=== PATIENT | female | born 1955 | race Caucasian/White ===

== ENCOUNTER 2016-06-24 10:52 | Outpatient (CLI) | payer OTHER ==
[~2016-06-24 10:52] MED LIST: METOPROLOL50 MG; PREVACID15 MG
== END 2016-06-24 20:24 | disposition home or self-care (01) ==
LOC: MLB 10:52
PROVIDERS: ATTEND Internal Medicine Geriatric Medicine
DX: E11.9 Type 2 diabetes mellitus without complications (principal); E55.9 Vitamin D deficiency, unspecified; E04.1 Nontoxic single thyroid nodule; R39.198 Other difficulties with micturition

== ENCOUNTER 2017-02-03 02:05 | Emergency (ER) | payer OTHER ==
[~2017-02-03] VITALS: Ht 157.5 cm; Wt 97.6 kg
[~2017-02-03 02:05] MED LIST changes: +LANS15EC28; +METO50TA10; -METOPROLOL50 MG; -PREVACID15 MG
[2017-02-03 02:13] VITALS: BP 157/71
--- NOTE | 2017-02-03 02:18 | NUR ---
PT TAKEN TO BED 11
--- NOTE | 2017-02-03 02:26 | NUR ---
Dr. Trimble evaluating patient at bedside.
--- NOTE | 2017-02-03 02:29 | NUR ---
61/F c/o right shoulder pain since Wednesday worsening tonight. Pt c/o 12/27, radiating down the right arm. Pt denies any injury or trauma. Pt noted holding her right arm. AOX4, ambulatory with steady gait.
[2017-02-03] MEDS ORDERED: KETOROLAC 30 MG/ML VIAL IM ONE (02:35)
--- NOTE | 2017-02-03 02:51 | NUR ---
X-Ray at bedside.
--- NOTE | 2017-02-03 02:51 | NUR ---
Wilfred parker in [facility] - 02/03/17 at 0339 by ANSON X-Ray at bedside.
[2017-02-03 04:02] VITALS: BP 157/71
--- NOTE | 2017-02-03 04:04 | NUR ---
Patient discharged with v/s stable. Written and verbal after care instructions given and explained. Patient alert, oriented and verbalized understanding of instructions. Ambulatory with steady gait. All questions addressed prior to discharge. Patient advised to follow up with PMD. Rx of ultram 50mg given. Patient educated on indication of medication including possible reaction and side effects. Opportunity to ask questions provided and answered.
== END 2017-02-03 04:04 | disposition home or self-care (01) ==
LOC: MED 02:05
DX: M75.81 Other shoulder lesions, right shoulder (principal); I10 Essential (primary) hypertension; Z90.710 Acquired absence of both cervix and uterus; Z88.8 Allergy status to other drugs, medicaments and biological substances; Z79.899 Other long term (current) drug therapy
CPT/HCPCS: 73030; 96372; 99284; J1885; Q0092

== ENCOUNTER 2017-10-04 23:13 | Outpatient (CLI) | payer OTHER ==
[~2017-10-04 23:13] MED LIST changes: -METO50TA10; +METO50TA34
[2017-10-04 23:38] LABS: BASOPHILS # (AUTO) 0.1 K/uL (0.00-0.22); BASOPHILS % (AUTO) 1.1 % (0.0-2.0); EOSINOPHILS # (AUTO) 0.2 K/uL (0-0.4); EOSINOPHILS % (AUTO) 1.8 % (0.0-4.0); HEMOGLOBIN 14.9 g/dL (12.0-16.0); LYMPHOCYTES # (AUTO) 3.6 K/uL (2.5-16.5); LYMPHOCYTES % (AUTO) 31.2 % (20.5-51.1); MEAN CORPUSCULAR HEMOGLOBIN 28 pg (27-31); MEAN CORPUSCULAR HGB CONC 34 g/dL (33-37); MEAN CORPUSCULAR VOLUME 82.4 fL (80-94); MONOCYTES # (AUTO) 0.5 K/uL (0.8-1.0); MONOCYTES % (AUTO) 4.3 % (1.7-9.3); NEUTROPHILS # (AUTO) 7.2 K/uL (1.8-7.7); NEUTROPHILS % (AUTO) 61.6 % (42.2-75.2); PLATELET COUNT (AUTO) 341 K/uL (140-450); RED BLOOD CELL COUNT(AUTO) 5.35 MIL/uL (4.20-5.40); RED CELL DISTRIBUTION WIDTH 14.5 % (11.6-13.7); WHITE BLOOD COUNT (AUTO) 11.6 K/uL (4.8-10.8)
[2017-10-05 00:01] LABS: ALBUMIN 3.9 g/dL (3.4-5.0); ANION GAP 16.4 (8-16); CARBON DIOXIDE 25.8 mmol/L (21-32); CHOL/HDL RATIO 3.4 (1-4.5); CREATININE 0.8 mg/dL (0.6-1.3); FREE T4 (FREE THYROXINE) 1.13 ng/dL (0.76-1.46); POTASSIUM 4.2 mmol/L (3.5-5.1); THYROID STIMULATING HORMONE 1.48 uIU/mL (0.34-3.74); TOTAL BILIRUBIN 0.3 mg/dL (0.0-1.0)
== END 2017-10-04 23:59 ==
LOC: MLB 23:13
PROVIDERS: ATTEND Internal Medicine Geriatric Medicine
DX: Z00.01 Encounter for general adult medical examination with abnormal findings (principal); E11.65 Type 2 diabetes mellitus with hyperglycemia; I10 Essential (primary) hypertension
CPT/HCPCS: 36415; 80053; 82306; 83036; 84439; 84443; 85025

== ENCOUNTER 2018-12-13 08:24 | Inpatient (IN) | payer OTHER ==
[~2018-12-13] VITALS: Ht 157.5 cm; Wt 92.5 kg
[2018-12-13 08:43] VITALS: BP 138/71
--- NOTE | 2018-12-13 09:05 | NUR ---
PT BIB SELF C/O N/V, BODY ACHES, CHILLS, "UNABLE TO CONTROL BLADDER," +URINARY FREQUENCY, SUBJECTIVE FEVER, HUNTER "IN THE BACK OF THE NECK" X 3 DAYS. 2 EPISODES OF BILE EMESIS TODAY. NO DIARRHEA, LAST BM 12/12/18, SOFT FIRM. DENEIS ABD PAIN, BOWEL SOUNDS ACTIVE X4 QUADRANTS, SOFT, AND NON-TENDER. DENIES CP/SOB. VSS. ER MD TO SEE PT. HX: DIABETES, HTN RX: METFORMIN, LEVOTHYROXINE, LOSARTAN, LORATADINE BS: [phone]
[2018-12-13] MEDS ORDERED: LOSA25TA43 PO (09:08)
[2018-12-13] MEDS ORDERED: LORA10TA19 PO (09:08)
[2018-12-13] MEDS ORDERED: LEVO0.087 PO (09:08)
[2018-12-13] MEDS ORDERED: LOSA50TA66 PO (09:08)
[2018-12-13] MEDS ORDERED: METF-431 PO (09:08)
[2018-12-13] MEDS ORDERED: ONDANSETRON 4 MG/2 ML VIAL IVP ONE ×2 (09:20→12:00)
[2018-12-13] MEDS ORDERED: KETOROLAC 30 MG/ML VIAL IVP ONE (09:20)
[2018-12-13] MEDS ORDERED: NACL 0.9% 1,000 ML IV SCH (09:20)
--- NOTE | 2018-12-13 09:53 | NUR ---
PT STATES SHE FEELS HOT, PT FEBRILE WITH TEMP OF 101.7 AT THIS TIME, COOLING MEASURES TAKEN, ER NOTIFIED.
[2018-12-13 10:03] LABS: BASOPHILS % (AUTO) 0.4 % (0.0-2.0); HEMATOCRIT 43.3 % (36-48); HEMOGLOBIN 14.6 g/dL (12.0-16.0); LYMPHOCYTES # (AUTO) 0.8 K/uL (2.5-16.5); LYMPHOCYTES % (AUTO) 8.3 % (20.5-51.1); MEAN CORPUSCULAR HEMOGLOBIN 28 pg (27-31); MEAN CORPUSCULAR HGB CONC 34 g/dL (33-37); MEAN CORPUSCULAR VOLUME 83.4 fL (80-94); MONOCYTES # (AUTO) 0.7 K/uL (0.8-1.0); MONOCYTES % (AUTO) 7.5 % (1.7-9.3); NEUTROPHILS # (AUTO) 8.1 K/uL (1.8-7.7); NEUTROPHILS % (AUTO) 83.8 % (42.2-75.2); PLATELET COUNT (AUTO) 218 K/uL (140-450); RED CELL DISTRIBUTION WIDTH 14.1 % (11.6-13.7); WHITE BLOOD COUNT (AUTO) 9.7 K/uL (4.8-10.8)
[2018-12-13] MEDS ORDERED: ACETAMINOPHEN EXTRA STRENGTH 500 MG TAB PO ONE (10:10)
--- NOTE | 2018-12-13 10:17 | NUR ---
PT RESTING IN BED WITH EYES CLOSED, ARROUSABLE TO NAME. PT DENIES PAIN AT THIS TIME AND STATES HER NAUSEA IS IS BETTER. PT AAOX4, COOPERATIVE.
[2018-12-13 10:25] LABS: PROTHROMBIN TIME 9.8 secs (10.8-13.4)
[2018-12-13 10:28] LABS: ALBUMIN 3.1 g/dL (3.4-5.0); ANION GAP 14.3 (8-16); CARBON DIOXIDE 26.3 mmol/L (21-32); CREATININE 0.8 mg/dL (0.6-1.3); POTASSIUM 3.6 mmol/L (3.5-5.1); TOTAL BILIRUBIN 0.5 mg/dL (0.0-1.0)
[2018-12-13 10:30] LABS: APPEARANCE,URINE SL CLOUDY (CLEAR); BILIRUBIN,URINE 2+ (NEGATIVE); BLOOD, URINE 3+ (NEGATIVE); COLOR,URINE YELLOW (YELLOW); LEUKOCYTE ESTERASE ,URINE NEGATIVE (NEGATIVE); NITRITE, URINE NEGATIVE (NEGATIVE); PH,URINE 5.5 (5.0-9.0); UGLUCOSE 2+ (NEGATIVE)
[2018-12-13 11:08] LABS: RBC,URINE 0-5 /HPF (0-5)
[2018-12-13] MEDS ORDERED: MORPHINE SULFATE 4 MG/ML SYR IVP ONE (12:00)
[2018-12-13] MEDS ORDERED: NACL 0.9% 1,000 ML IV ONE (12:00)
[2018-12-13] MEDS ORDERED: cefTRIAXone 1,000 MG VIAL ONE (12:10)
[2018-12-13] MEDS ORDERED: DEXT 5% /NACL 0.9% 1,000 ML IV SCH (12:38)
[2018-12-13] MEDS ORDERED: ZOLPIDEM 5 MG TAB PO PRN (12:40)
[2018-12-13] MEDS ORDERED: ONDANSETRON 4 MG/2 ML VIAL IM/IVP PRN (12:40)
[2018-12-13] MEDS ORDERED: LORazepam 2 MG/ML VIAL IM/IVP PRN (12:40)
[2018-12-13] MEDS ORDERED: DOCUSATE SODIUM 100 MG GELCAP PO PRN (12:40)
[2018-12-13] MEDS ORDERED: metroNIDAZOLE 500 MG/NS PREMIX 100 ML IV SCH ×2 (13:00→14:00)
--- NOTE | 2018-12-13 13:23 | NUR ---
PT ADMITTED TO THE FLOOR AT THIS TIME
--- NOTE | 2018-12-13 13:30 | NUR ---
Patient will be admitted to care of [facility]. Admited to TELE VIA GURRUBÉN W/ VSS. Will go to room 115. Belongings list completed. Report to MARVIN MATTSON.
--- NOTE | 2018-12-13 13:30 | NUR ---
PT ARRIVED ON THE UNIT PT APPEARS STABLE AND IN NO APPARENT DISTRESS. RECEIVED HAND OFF REPORT FROM ER NURSE. MRSA TAKEN, PT ORIENTED TO THE UNIT. VITALS TAKEN TEMP 97.0 HEART RATE 71 O2 96% ROOM AIR 136/62 RESIPIRATIONS 16 WILL CONTINUE TO MONITOR
[2018-12-13] MEDS ORDERED: DEXTROSE 50% 50 ML SYR IVP PRN (14:00)
[2018-12-13 14:12] LABS: MAGNESIUM 1.7 mg/dL (1.8-2.4); PHOSPHORUS 2.8 mg/dL (2.5-4.9); THYROID STIMULATING HORMONE 1.17 uIU/mL (0.34-3.74)
[2018-12-13] MEDS ORDERED: RANI150C PO (14:30)
[2018-12-13] MEDS: NACL 0.9% 1,000 ML IV SCH ×2 (14:48→23:20)
[2018-12-13] MEDS ORDERED: MAG SULF 2000 MG/WATER PREMIX 50 ML IV SCH ×2 (15:30→16:30)
--- NOTE | 2018-12-13 15:36 | NUR ---
FREQUENT ROUNDING ON PT PT APPEARS STABLE AND IN NO APPARENT DISTRESS. ALL SAFETY MEASURES ARE IN PLACE WILL CONTINUE TO MONITOR.
[2018-12-13] MEDS ORDERED: METOCLOPRAMIDE 10 MG/2 ML INJ VIAL IVP PRN (16:00)
--- NOTE | 2018-12-13 16:40 | NUR ---
PT REFUSES ABG AT THIS TIME ATTEMPTS MADE. LEFT SPUTUM CUP AT BEDSIDE
[2018-12-13 16:45] VITALS: BP 117/77
[2018-12-13] MEDS: BLOOD GLUCOSE MONITORING 1 DEV DEV FS SCH ×2 (16:57→20:14)
--- NOTE | 2018-12-13 17:00 | NUR ---
PT TAKEN OFF THE UNIT FOR CT CHEST WITH CONTRAST
--- NOTE | 2018-12-13 17:30 | NUR ---
PT RETURNED BACK TO THE UNIT
[2018-12-13] MEDS: HYDROcodone/APAP 5/325 MG 1 TAB TAB PO PRN (17:39)
[2018-12-13] MEDS: INSULIN LISPRO SLIDING SCALE 100 UNITS/ML VIAL SUBQ PRN (17:40)
[2018-12-13] MEDS: ALBUTEROL SULFATE/IPRATROPIU 3 ML SOL IH SCH (19:28)
--- NOTE | 2018-12-13 19:28 | NUR ---
ENDORSED PT TO PM RN PT AWAKE IN BED PT APPEARS STABLE AND IN NO APPARENT DISTRESS. ALL SAFETY MEASURES ARE IN PLACE. IVF INFUSING.
--- NOTE | 2018-12-13 19:30 | NUR ---
RECEIVED BEDSIDE REPORT FROM DAY RN. PT IS AAOX4 ON RA. RESPIRATIONS ARE EQUAL AND UNLABORED. LUNG SOUNDS DIMINISH ON RLL. SKIN IS INTACT. PT IS AMBULATORY. 2 IVS R [id number] SL AND R FA 18G IVF AND MG INFUSING PER ORDERS. PT DENIES ANY NAUSEA AT THIS TIME. PLAN OF CARE DISCUSSED WITH PT. SAFETY MEASURES ARE IN PLACE. CALL LIGHT IS WITHIN REACH. WILL ROUND FREQUENTLY.
[2018-12-13 20:00] VITALS: BP 128/62
[2018-12-13] MEDS: metroNIDAZOLE 500 MG/NS PREMIX 100 ML IV SCH (20:29)
[2018-12-13] MEDS: FAMOTIDINE 20 MG TAB PO SCH (20:29)
--- NOTE | 2018-12-13 20:29 | NUR ---
VITAL SIGNS ARE WITHIN NORMAL LIMITS. NO TEMP AND DENIES PAIN. BLOOD SUGAR IS 260 PT JUST FINISHED EATING TRAY AND REFUSED INSULIN EDUCATED PT SHE NORMALLY TAKES METFORMIN AT HOME AND NOT INSULIN. METFORMIN TO BE HELD FOR 24 HRS D/T CT OF CHEST WITH CONTRAST. PT VERBALIZED UNDERSTANDING. WILL RECHECK IN AM. REMAINING DAYANA MEDICATIONS WERE GIVEN. PT TOLERATED WELL. SON AND DAUGHTER IN LAW ARE AT BEDSIDE. CALL LIGHT WITHIN REACH. WILL CONTINUE TO MONITOR.
[2018-12-13] MEDS ORDERED: NON-FORMULARY ITEM (Ranitidine HCl (Ranitidine Hcl) 1 CAP) PO SCH (21:00)
[2018-12-13] MEDS ORDERED: BENZONATATE 100 MG CAPLF PO PRN (21:45)
--- NOTE | 2018-12-13 22:00 | NUR ---
REMINDED PT FOR NEED OF SPUTUM CULTURE. PATIENT VERBALIZED UNDERSTANDING. SPECIMEN CUP AT BEDSIDE AND FAMILY REMAIN AT BEDSIDE. WILL CONTINUE TO MONITOR.
[2018-12-13] MEDS: ALBUTEROL SULFATE/IPRATROPIU 3 ML SOL IH PRN (23:25)
--- NOTE | 2018-12-13 23:35 | NUR ---
PAGED RT FOR BREATHING TREATMENT. PT WHEEZING RONIT. VS: 98%, RA RR 18, 131/56, HR 87, 98.5 DENIES PAIN. SAFETY MEASURES ARE IN PLACE. SON AT BEDSIDE. WILL CONTINUE TO MONITOR.
[2018-12-13] MEDS ORDERED: guaiFENesin 20 MG/ML UDC PO PRN (23:40)
--- NOTE | 2018-12-13 23:40 | NUR ---
RT AT BEDSIDE. WILL CONTINUE TO MONITOR
--- NOTE | 2018-12-13 23:49 | NUR ---
ROBITUSSIN GIVEN FOR COUGH. VITAL SIGNS WNL. ALL NEEDS MET AT THIS TIME. WILL CONTINUE TO MONITOR.
[2018-12-14] VITALS: BP 131/56
--- NOTE | 2018-12-14 03:00 | NUR ---
PATIENT IS SLEEPING COMFORTABLY IN BED. CHEST RISE AND FALL. CALL LIGHT IS WITHIN REACH. WILL CONTINUE TO MONITOR
[2018-12-14 04:00] VITALS: BP 121/51
--- NOTE | 2018-12-14 04:30 | NUR ---
VITAL SIGNS ARE WITHIN NORMAL LIMITS. WILL CONTINUE TO MONITOR
[2018-12-14] MEDS: metroNIDAZOLE 500 MG/NS PREMIX 100 ML IV SCH ×3 (05:44→20:55)
[2018-12-14] MEDS: LEVOTHYROXINE 0.088 MG TAB PO SCH (05:45)
[2018-12-14] MEDS: ACETAMINOPHEN 325 MG TAB PO PRN ×2 (05:49→15:07)
--- NOTE | 2018-12-14 05:49 | NUR ---
TYLENOL GIVEN FOR TEMP 100.3 AND COOLING MEASURES ARE IN PLACE. WILL RECHECK TEMP IN 1 HOUR
[2018-12-14] MEDS: ALBUTEROL SULFATE/IPRATROPIU 3 ML SOL IH SCH ×3 (06:06→22:34)
[2018-12-14] MEDS: BLOOD GLUCOSE MONITORING 1 DEV DEV FS SCH ×4 (06:35→21:06)
[2018-12-14] MEDS: INSULIN LISPRO SLIDING SCALE 100 UNITS/ML VIAL SUBQ PRN ×3 (06:44→21:09)
--- NOTE | 2018-12-14 06:55 | NUR ---
ADMINISTERED HUMALOG 2 U FOR 196 AND TEMP NOW 98.8. ALL SAFETY MEASURES ARE IN PLACE. WILL CONTINUE TO MONITOR.
--- NOTE | 2018-12-14 07:27 | NUR ---
GAVE BEDSIDE REPORT TO DAY RN. PT ENDORSED IN STABLE CONDITION.
--- NOTE | 2018-12-14 07:28 | NUR ---
RECEIVED REPORT FROM JEWELRY MECHANIC NURSE. PT LYING IN BED, AAOX4, NO C/O PAIN AT THIS TIME. PT ON FUR CUTTING MACHINE OPERATOR. NOTED IV ON RT FA 18 GA RUNNING IVF PER ORDER AND RT HAND 20 GA ON SALINE LOCK. RESPIRATIONS EVEN AND UNLABORED ON RA. ACTIVE BOWEL SOUNDS THROUGHOUT, ABD SOFT. SKIN IS INTACT, WARM TO TOUCH. REVIEWED POC WITH PT, PT VERBALIZED UNDERSTANDING.
[2018-12-14 07:52] LABS: BASOPHILS % (AUTO) 0.3 % (0.0-2.0); EOSINOPHILS % (AUTO) 0.1 % (0.0-4.0); HEMATOCRIT 36.4 % (36-48); HEMOGLOBIN 12.4 g/dL (12.0-16.0); LYMPHOCYTES % (AUTO) 15.5 % (20.5-51.1); MEAN CORPUSCULAR HEMOGLOBIN 28 pg (27-31); MEAN CORPUSCULAR HGB CONC 34 g/dL (33-37); MEAN CORPUSCULAR VOLUME 82.5 fL (80-94); MONOCYTES # (AUTO) 0.6 K/uL (0.8-1.0); MONOCYTES % (AUTO) 8.9 % (1.7-9.3); NEUTROPHILS # (AUTO) 4.9 K/uL (1.8-7.7); NEUTROPHILS % (AUTO) 75.2 % (42.2-75.2); PLATELET COUNT (AUTO) 181 K/uL (140-450); RED BLOOD CELL COUNT(AUTO) 4.42 MIL/uL (4.20-5.40); RED CELL DISTRIBUTION WIDTH 13.9 % (11.6-13.7); WHITE BLOOD COUNT (AUTO) 6.6 K/uL (4.8-10.8)
[2018-12-14 08:00] VITALS: BP 118/63
[2018-12-14 08:12] LABS: T4 (THYROXINE) 8.7 ug/dL (4.5-12.0)
[2018-12-14 08:20] LABS: ANION GAP 16.5 (8-16); CARBON DIOXIDE 20.9 mmol/L (21-32); CREATININE 0.7 mg/dL (0.6-1.3); POTASSIUM 3.4 mmol/L (3.5-5.1)
--- NOTE | 2018-12-14 08:23 | NUR ---
PATIENT HAS BEEN SCREENED AND CATEGORIZED HIGH NUTRITION RISK. PATIENT WILL BE SEEN WITHIN 1-2 DAYS OF ADMISSION. 12/14/18-12/15/[address]
[2018-12-14 08:27] LABS: MAGNESIUM 1.8 mg/dL (1.8-2.4); PHOSPHORUS 2.2 mg/dL (2.5-4.9)
[2018-12-14] MEDS: FAMOTIDINE 20 MG TAB PO SCH ×2 (08:55→20:55)
[2018-12-14] MEDS: LACTOBACILLUS RHAMNOSUS GG 1 EACH CAP PO SCH (08:55)
[2018-12-14] MEDS: LOSARTAN 50 MG TAB PO SCH (08:55)
--- NOTE | 2018-12-14 08:59 | NUR ---
PT PROVIDED SPUTUM CULTURE, WILL SEND SPECIMEN TO LAB.
[2018-12-14] MEDS: MORPHINE SULFATE 2 MG/ML SYR IVP PRN (10:35)
[2018-12-14 10:37] LABS: CHOL/HDL RATIO 4.7 (1-4.5)
[2018-12-14] MEDS: NACL 0.9% 1,000 ML IV SCH ×2 (10:40→16:28)
[2018-12-14] MEDS: ALBUTEROL SULFATE/IPRATROPIU 3 ML SOL IH PRN (11:05)
--- NOTE | 2018-12-14 11:30 | NUR ---
WILL HOLD BLOOD SUGAR COVERAGE, PT WILL BE PLACED ON NPO D/T ULTRASOUND PROCEDURE LATER. PT IS AWARE AND WILL REPORT ANY S/S OF HYPERGLYCEMIA.
[2018-12-14 12:00] VITALS: BP 141/70
[2018-12-14] MEDS ORDERED: methylPREDNISolone SS 40 MG/ML VIAL IVP SCH (12:04)
--- NOTE | 2018-12-14 12:29 | NUR ---
pt has refused abg. leanne wright and dr. fagan notified
[2018-12-14] MEDS ORDERED: POTASSIUM PHOSPHATE 15 MM in NACL 0.9% 250 ML IV SCH (13:00)
--- NOTE | 2018-12-14 14:07 | NUR ---
PT GIVEN TYLENOL AND PROVIDED COOLING MEASURES FOR FEVER, ORAL TEMP 101.9. WILL REASSESS WITHIN ONE HOUR. Addendum: 12/14/18 at 2022 by Tiffanie Tinsley RN CLARIFICATION: INCORRECT TIME TYLENOL WAS GIVEN AT 1507.
--- NOTE | 2018-12-14 15:07 | NUR ---
12/14/18 RD INITIAL ASSESSMENT COMPLETED PLEASE REFER TO NUTRITION ASSESSMENT UNDER CARE ACTIVITY FOR ESTIMATED NUTRITIONAL NEEDS. 1. CONTINUE NPO MEDICALLY NECESSARY 2. WHEN MEDICALLY APPROPRIATE, CONSIDER ADVANCING TO A [facility] [address]GM VEGETARIAN DIET 3. RD OFFERED NUTRITION EDUCATION THERAPY FOR DIABETES BUT PATIENT DECLINED 4. RD TO FOLLOW-UP 3-5 DAYS, MODERATE RISK [address]NOR [address]OL[address]
[2018-12-14 16:00] VITALS: BP 105/54
--- NOTE | 2018-12-14 16:07 | NUR ---
ORAL TEMP CHECKED AT 100.4. WILL CONTINUE TO PROVIDE COOLING MEASURES AT THIS TIME.
--- NOTE | 2018-12-14 17:00 | NUR ---
PT'S TEMPERATURE CHECKED AT 98.3, PT IS AFEBRILE. WILL CONTINUE TO MONITOR.
--- NOTE | 2018-12-14 19:08 | NUR ---
ENDORESED PT TO MICA LAMINATING MACHINE FEEDER NURSE. PT HAS NO SIGNS OF DISTRESS AT THIS TIME.
--- NOTE | 2018-12-14 19:15 | NUR ---
RECEIVED BEDSIDE REPORT FROM DAY SHIFT NURSE. PATIENT IS AWAKE, ALERT, AND COOPERATIVE. RESPIRATION EVEN UNLABORED ON ROOM AIR. NO DISTRESS NOTED. SKIN IS WARM AND DRY. IV PATENT AND INTACT. DENIES PAIN. PLAN OF CARE WAS DISCUSSED. ALL SAFETY MEASURES IN PLACE. BED IS AT LOW POSITION. CALL LIGHT WITHIN REACH AND VERBALIZES ITS USE. WILL CONTINUE TO MONITOR.
--- NOTE | 2018-12-14 19:38 | NUR ---
SHE ON THE PHONE, SHE WANTS ME LATER ON
[2018-12-14 20:00] VITALS: BP 138/63
--- NOTE | 2018-12-14 20:00 | NUR ---
INITIAL ASSESSMENT DONE. VITALS WERE TAKEN. PATIENT IN STABLE CONDITION. FAMILY AT BEDSIDE. CALL LIGHT WITHIN REACH. WILL CONTINUE TO MONITOR.
--- NOTE | 2018-12-14 21:00 | NUR ---
ALL SCHEDULED MEDS WERE GIVEN PER ORDER. NO ASE NOTED. WILL CONTINUE TO MONITOR.
--- NOTE | 2018-12-14 22:30 | NUR ---
PATIENT IN BED WITH FAMILY NO DISTRESS NOTED. WILL CONTINUE TO MONITOR.
--- NOTE | 2018-12-14 23:17 | NUR ---
PATIENT TAKING A SHOWER. IN STABLE CONDITION. WILL CONTINUE TO MONITOR.
[2018-12-14] MEDS: LEVOFLOXACIN 750 MG/D5W PREMIX 150 ML IV SCH (23:47)
[2018-12-15] VITALS: BP 124/66
--- NOTE | 2018-12-15 | NUR ---
VITALS WERE TAKEN. PATIENT IN STABLE CONDITION. NO DISTRESS NOTED. DENIES PAIN. CALL LIGHT WITHIN REACH. WILL CONTINUE TO MONITOR.
--- NOTE | 2018-12-15 02:10 | NUR ---
PATIENT COMPLAINED OF GENERALIZED PAIN 5/10. PRN PAIN MED ADMINISTERED PER ORDER. WILL CONTINUE TO MONITOR.
[2018-12-15] MEDS: HYDROcodone/APAP 5/325 MG 1 TAB TAB PO PRN (02:15)
[2018-12-15] MEDS: NACL 0.9% 1,000 ML IV SCH ×3 (02:15→12:22)
[2018-12-15 04:00] VITALS: BP 121/59
--- NOTE | 2018-12-15 04:00 | NUR ---
VITALS WERE TAKEN. PATIENT IN STABLE CONDITION. NO DISTRESS NOTED. DENIES PAIN. CALL LIGHT WITHIN REACH. WILL CONTINUE TO MONITOR.
[2018-12-15] MEDS: CLINDAMYCIN 600 MG in DEXTROSE 5% 50 ML IV SCH ×3 (04:29→21:16)
[2018-12-15] MEDS ORDERED: CLINDAMYCIN 600 MG/4 ML VIAL ONE (04:35)
[2018-12-15] MEDS: LEVOTHYROXINE 0.088 MG TAB PO SCH (05:43)
[2018-12-15] MEDS: INSULIN LISPRO SLIDING SCALE 100 UNITS/ML VIAL SUBQ PRN ×4 (05:44→20:24)
[2018-12-15] MEDS: BLOOD GLUCOSE MONITORING 1 DEV DEV FS SCH ×4 (06:06→20:22)
--- NOTE | 2018-12-15 06:15 | NUR ---
PATIENT LEFT THE FLOOR VIA WHEELCHAIR FOR CT SCAN.
--- NOTE | 2018-12-15 07:00 | NUR ---
RIGHT HAND IV DISCONTINUE DUE TO REDNESS AND TENDERNESS.
[2018-12-15 07:06] LABS: BASOPHILS % (AUTO) 0.1 % (0.0-2.0); HEMATOCRIT 36.2 % (36-48); HEMOGLOBIN 12.2 g/dL (12.0-16.0); LYMPHOCYTES # (AUTO) 0.6 K/uL (2.5-16.5); LYMPHOCYTES % (AUTO) 6.5 % (20.5-51.1); MEAN CORPUSCULAR HEMOGLOBIN 28 pg (27-31); MEAN CORPUSCULAR HGB CONC 34 g/dL (33-37); MEAN CORPUSCULAR VOLUME 82.9 fL (80-94); MONOCYTES # (AUTO) 0.7 K/uL (0.8-1.0); MONOCYTES % (AUTO) 7.6 % (1.7-9.3); NEUTROPHILS # (AUTO) 7.9 K/uL (1.8-7.7); NEUTROPHILS % (AUTO) 85.8 % (42.2-75.2); PLATELET COUNT (AUTO) 193 K/uL (140-450); RED BLOOD CELL COUNT(AUTO) 4.37 MIL/uL (4.20-5.40); RED CELL DISTRIBUTION WIDTH 13.9 % (11.6-13.7); WHITE BLOOD COUNT (AUTO) 9.2 K/uL (4.8-10.8)
[2018-12-15] MEDS: ALBUTEROL SULFATE/IPRATROPIU 3 ML SOL IH SCH ×5 (07:06→19:17)
--- NOTE | 2018-12-15 07:13 | NUR ---
ENDORSED PATIENT TO DAY SHIFT NURSE. PATIENT IN STABLE CONDITION.
--- NOTE | 2018-12-15 07:14 | NUR ---
RECEIVED REPORT FROM SUPERVISORY AIDE NURSE. PT AAOX4, NO C/O PAIN AT THIS TIME. PT ON TECHNICAL SERVICES REPRESENTATIVE. IV ON RT FA 20 GA RUNNING IVF PER ORDER. RESPIRATIONS EVEN AND UNLABORED ON RA. ABD SOFT, ACTIVE BOWEL SOUNDS THROUGHOUT. SKIN IS INTACT, WARM TO TOUCH. REVIEWED POC WITH PT, PT VERBALIZED UNDERSTANDING.
[2018-12-15 07:45] LABS: MAGNESIUM 1.9 mg/dL (1.8-2.4)
[2018-12-15 07:56] LABS: ANION GAP 16.8 (8-16); CARBON DIOXIDE 21.9 mmol/L (21-32); CREATININE 0.6 mg/dL (0.6-1.3); POTASSIUM 3.7 mmol/L (3.5-5.1)
[2018-12-15 08:00] VITALS: BP 129/53
[2018-12-15] MEDS ORDERED: metFORMIN 500 MG TAB PO SCH ×2 (09:00→17:14)
[2018-12-15] MEDS: FAMOTIDINE 20 MG TAB PO SCH ×2 (09:31→21:17)
[2018-12-15] MEDS: LACTOBACILLUS RHAMNOSUS GG 1 EACH CAP PO SCH (09:31)
[2018-12-15] MEDS: methylPREDNISolone SS 40 MG/ML VIAL IVP SCH (09:32)
[2018-12-15] MEDS: LOSARTAN 50 MG TAB PO SCH (09:32)
--- NOTE | 2018-12-15 09:56 | NUR ---
PER DR. AL, IMELDA KOCH AT THIS TIME, GIVE COVERAGE PER SLIDING SCALE NEEDED.
[2018-12-15 12:00] VITALS: BP 138/67
[2018-12-15] MEDS: MORPHINE SULFATE 2 MG/ML SYR IVP PRN (12:38)
--- NOTE | 2018-12-15 12:38 | NUR ---
PT C/O LEVEL 8/10 PAIN TO RIGHT LOWER ABDOMEN, GIVEN MORPHINE PER ORDER, WILL REASSESS WITHIN 1 HOUR.
--- NOTE | 2018-12-15 13:21 | NUR ---
PT GIVEN TESSALON PERLES FOR COUGH, WILL REASSESS WITHIN 1 HOUR FOR EFFECTIVENESS.
--- NOTE | 2018-12-15 13:38 | NUR ---
DR. AL NOTIFIED THAT DR. HAMMOND FROM [facility] WOULD LIKE TO SPEAK WITH PHYSICIAN REGARDING PLAN FOR OUTPATIENT PROCEDURE. NUMBER TO CALL IS .
--- NOTE | 2018-12-15 15:28 | NUR ---
Funeral Director Note: [employer] Jennifer requested my assistance to schedule an outpatient follow up appointment. I called and spoke with Geena from Radiology Dept at [facility] to schedule lung biopsy appointment. Per Geena, their x-ray project controls scheduler tech is no longer in office and no one else can assist us with scheduling an appointment. Geena stated we have to call tomorrow morning at 8am and request to speak with Torrie [employer] Jennifer made aware.
[2018-12-15] MEDS: guaiFENesin DM 200/20 MG-10 ML 10 ML UDC PO PRN (15:59)
[2018-12-15] MEDS: ACETAMINOPHEN 325 MG TAB PO PRN (15:59)
--- NOTE | 2018-12-15 15:59 | NUR ---
PT ORAL TEMP CHECKED AT 102.6, GIVEN TYLENOL AND COOLING MEASURES AT THIS TIME. GIVEN COUGH MEDICINE AT THIS TIME. WILL MONITOR IN 1 HOUR.
[2018-12-15 16:00] VITALS: BP 122/68
[2018-12-15] MEDS: ALBUTEROL SULFATE/IPRATROPIU 3 ML SOL IH PRN ×2 (16:30→23:38)
--- NOTE | 2018-12-15 16:36 | NUR ---
PLACED PT ON 3LPM NC PT SOB LOW SPO2 RN AWARE
--- NOTE | 2018-12-15 16:56 | NUR ---
PT ORAL TEMP CHECKED AT 101.0, WILL NOTIFY PHYSICIAN. CONTINUE TO PROVIDE COOLING MEASURES AT THIS TIME.
[2018-12-15] MEDS: KETOROLAC 15 MG/ML VIAL IVP SCH ×2 (17:19→17:24)
--- NOTE | 2018-12-15 19:15 | NUR ---
ENDORSED PT TO SNUBBER NURSE. PT HAS NO SIGNS OF DISTRESS AT THIS TIME.
--- NOTE | 2018-12-15 19:16 | NUR ---
RECEIVED REPORT FROM AM SHIFT PT A,A, O X 4. PT AMBULATORY , W/ IV ON LEFT FOREARM G 18 PATENT AND INTACT AND W/ ONGOING NS AT 60 ML/HR, INFUSING WELL. MODIFIED CODE, NO COMPRESSION, NO DEFIB, NO INTUBATION. ALALEGIC TO BENAZEPRIL. VITALS TAKEN 98. 5 AFEBRILE. PLACED ON LOW BED, SEMI FOWLERS POSITION, CALL LIGHT W/IN REACH
[2018-12-15 20:00] VITALS: BP 100/60
--- NOTE | 2018-12-15 21:16 | NUR ---
CLEOCIN GIVEN; PT HAS NO REACTIONS
[2018-12-15] MEDS: LEVOFLOXACIN 750 MG/D5W PREMIX 150 ML IV SCH (21:34)
[2018-12-16] VITALS: BP 127/39
--- NOTE | 2018-12-16 | NUR ---
PT AWAKE, ALERT ORIENTED, INSIDE THE ROOM, TALKING W/ STAFF. PT COMFORTABLE, NO SIGNS OF DISTRESS. GIVEN A WARM BLANKET AND SIPS OF WATER AND ICE CHIPS
--- NOTE | 2018-12-16 01:23 | NUR ---
ENTERED PT'S ROOM TO GIVE HYPERTONIC SALINE TO INDUCE A SPUTUM SAMPLE. PT IS ON 2 L NC. SATS 96% HR 94. NO RESP DISTRESS AT THIS TIME.
[2018-12-16] MEDS ORDERED: SODIUM PHOSPHATE 118 ML ENEM RC PRN (02:55)
--- NOTE | 2018-12-16 03:00 | NUR ---
PT C/O OF 09/26 PAIN ON THE LEFT SIDE ABDOMEN, INFORMED DR. PEREZ, HE WENT TO BEDSIDE TO TALK TO PT. GIVEN FLEET ENEMA AND TORADOL PRN
[2018-12-16] MEDS: KETOROLAC 15 MG/ML VIAL IVP PRN ×2 (03:08→08:47)
[2018-12-16] MEDS ORDERED: METOCLOPRAMIDE 10 MG/2 ML INJ VIAL IVP SCH (03:20)
[2018-12-16 04:00] VITALS: BP 104/43
--- NOTE | 2018-12-16 04:00 | NUR ---
PT HAD 1 LIQUID STOOL, CLEANED PT .
[2018-12-16] MEDS: METOCLOPRAMIDE 10 MG/2 ML INJ VIAL IVP SCH ×3 (05:03→16:00)
[2018-12-16] MEDS: CLINDAMYCIN 600 MG in DEXTROSE 5% 50 ML IV SCH ×3 (05:49→21:15)
--- NOTE | 2018-12-16 06:01 | NUR ---
PT AWAKE, ALERT ORIENTED, AMBULATORY. PT IN STABLE CONDITION, WILL ENDORSE TO NEXT SHIFT
[2018-12-16] MEDS: BLOOD GLUCOSE MONITORING 1 DEV DEV FS SCH ×4 (06:34→21:38)
[2018-12-16] MEDS: INSULIN LISPRO SLIDING SCALE 100 UNITS/ML VIAL SUBQ PRN ×4 (06:39→21:40)
[2018-12-16 07:13] LABS: MAGNESIUM 1.6 mg/dL (1.8-2.4); PHOSPHORUS 3.2 mg/dL (2.5-4.9)
[2018-12-16] MEDS: ALBUTEROL SULFATE/IPRATROPIU 3 ML SOL IH SCH ×3 (07:18→19:06)
[2018-12-16 07:22] LABS: ANION GAP 12.9 (8-16); CARBON DIOXIDE 25.1 mmol/L (21-32); CREATININE 0.6 mg/dL (0.6-1.3)
[2018-12-16] MEDS: NACL 0.9% 1,000 ML IV SCH (07:22)
--- NOTE | 2018-12-16 07:29 | NUR ---
RECEIVED REPORT FROM REFRACTORY REPAIRER RN AT BEDSIDE. PT IS AAOX 4. PT AMBULATORY , W/ IV ON LEFT FOREARM G 18 PATENT AND INTACT AND W/ ONGOING NS AT 60 ML/HR, INFUSING WELL. MODIFIED CODE, NO COMPRESSION, NO DEFIB, NO INTUBATION. ALALEGIC TO BENAZEPRIL. VITALS TAKEN 98. 5 AFEBRILE. PLACED ON LOW BED, SEMI FOWLERS POSITION, CALL LIGHT W/IN REACH
[2018-12-16] MEDS: MAGNESIUM HYDROXIDE 2400 MG/30 ML UDC PO SCH ×2 (07:45→08:45)
[2018-12-16 07:49] LABS: BASOPHILS % (AUTO) 0.3 % (0.0-2.0); EOSINOPHILS % (AUTO) 0.5 % (0.0-4.0); HEMATOCRIT 33.7 % (36-48); HEMOGLOBIN 11.4 g/dL (12.0-16.0); LYMPHOCYTES # (AUTO) 1.2 K/uL (2.5-16.5); LYMPHOCYTES % (AUTO) 14.2 % (20.5-51.1); MEAN CORPUSCULAR HEMOGLOBIN 28 pg (27-31); MEAN CORPUSCULAR HGB CONC 34 g/dL (33-37); MEAN CORPUSCULAR VOLUME 82.7 fL (80-94); MONOCYTES # (AUTO) 0.5 K/uL (0.8-1.0); MONOCYTES % (AUTO) 5.7 % (1.7-9.3); NEUTROPHILS # (AUTO) 6.6 K/uL (1.8-7.7); NEUTROPHILS % (AUTO) 79.3 % (42.2-75.2); PLATELET COUNT (AUTO) 220 K/uL (140-450); RED BLOOD CELL COUNT(AUTO) 4.08 MIL/uL (4.20-5.40); RED CELL DISTRIBUTION WIDTH 14.2 % (11.6-13.7); WHITE BLOOD COUNT (AUTO) 8.4 K/uL (4.8-10.8)
[2018-12-16 08:00] VITALS: BP 124/58
[2018-12-16] MEDS: metFORMIN 500 MG TAB PO SCH ×2 (08:00→17:00)
[2018-12-16] MEDS: guaiFENesin DM 200/20 MG-10 ML 10 ML UDC PO PRN ×3 (08:38→22:35)
[2018-12-16] MEDS: LEVOTHYROXINE 0.088 MG TAB PO SCH (08:45)
[2018-12-16] MEDS: LOSARTAN 50 MG TAB PO SCH (08:46)
[2018-12-16] MEDS: methylPREDNISolone SS 40 MG/ML VIAL IVP SCH (08:46)
[2018-12-16] MEDS: FAMOTIDINE 20 MG TAB PO SCH ×2 (08:47→21:15)
[2018-12-16] MEDS: LACTOBACILLUS RHAMNOSUS GG 1 EACH CAP PO SCH (08:47)
--- NOTE | 2018-12-16 09:18 | NUR ---
ADMINISTERED MORNING MEDS TO PT. PT TOLERATED THEM WELL. PT RUNNING FEVER OF 100.0. ADMINISTERED TORADOL FOR FEVER REDUCTION. ALL OTHER NEEDS MET. WILL CONTINUE TO ROUND FREQUENTLY ON PT.
--- NOTE | 2018-12-16 11:24 | NUR ---
3 WAY ARELLANO CATHETER INSERTED. PT TOLERATED IT WELL. LARGE CLOTS SEEN AT TIP OF ARELLANO THAT WAS INSERTED INTO BLADDER. CONTINUOUS IRRIGATION RUNNING NOW. Addendum: 12/16/18 at 1401 by Gema Anne RN WRONG PT.
[2018-12-16 12:00] VITALS: BP 134/68
--- NOTE | 2018-12-16 13:47 | NUR ---
PT RESTING IN BED. ALL NEEDS CURRENTLY MET. WILL CONTINUE TO ROUND FREQUENTLY ON PT.
--- NOTE | 2018-12-16 14:02 | NUR ---
ARRANGED OUT PATIENT APPOINTMENT AT [facility] WITH RADIOLOGIST DR MORGAN ON Wednesday AT 10 AM NOTIFIED PATIENT AND DR AL.
--- NOTE | 2018-12-16 15:08 | NUR ---
PT RESTING IN BED. ALL NEEDS MET. WILL CONTINUE TO ROUND FREQUENTLY ON PT. BE IN LOW POSITION, CALL LIGHT WITHIN REACH.
[2018-12-16 16:00] VITALS: BP 121/49
[2018-12-16] MEDS: MAG SULF 2000 MG/WATER PREMIX 100 ML IV SCH ×2 (17:26→19:38)
--- NOTE | 2018-12-16 17:32 | NUR ---
PT RESTING IN BED. ALL NEEDS MET. WILL CONTINUE TO ROUND FREQUENTLY ON PT.
--- NOTE | 2018-12-16 19:44 | NUR ---
ENDORSED PT TO CERTIFIED PHARMACY TECHNICIAN FOR CONTINUITY OF CARE. PT IN STABLE CONDITION AT THIS TIME.
--- NOTE | 2018-12-16 19:45 | NUR ---
RECEIVED REPORT FROM AM SHIFT PT A,A, O X 4. PT AMBULATORY , W/ IV ON LEFT FOREARM G 18 PATENT AND INTACT AND W/ ONGOING MG SO4 INFUSING WELL. MODIFIED CODE, NO COMPRESSION, NO DEFIB, NO INTUBATION. ALLERGIC TO BENAZEPRIL. VITALS TAKEN 97.7 AFEBRILE. PLACED ON LOW BED, SEMI FOWLERS POSITION, CALL LIGHT W/IN REACH
[2018-12-16 20:00] VITALS: BP 108/52
--- NOTE | 2018-12-16 22:00 | NUR ---
PT GIVEN MEDS, PT TOLERATED IT. WILL CONTINUE TO MONITOR FOR ADVERSE EFFECTS
[2018-12-16] MEDS: LEVOFLOXACIN 750 MG/D5W PREMIX 150 ML IV SCH (22:42)
[2018-12-16] MEDS ORDERED: POTASSIUM CHLORIDE 40 MEQ, LIDOCAINE MPF 1% - 5 mL VIAL 25 MG in NACL 0.9% 250 ML IV SCH (23:00)
--- NOTE | 2018-12-16 23:45 | NUR ---
PT'S IVF ON THE RIGHT FOREARM DISLODGED, REINSERTED A NEW LINE ON THE LEFT HAND G 22. WILL ASSESS FOR SIGNS OF INFEVTION, FLUSHED , PATENT AND INTACT
[2018-12-17] VITALS: BP 120/69
[2018-12-17] MEDS: NACL 0.9% 1,000 ML IV SCH (00:02)
--- NOTE | 2018-12-17 02:05 | NUR ---
PT GETTING UP AND TRYING TO WALK AROUND THE HALLWAY, HAS MORE STRENGTH THAN USUAL
[2018-12-17] MEDS: KETOROLAC 15 MG/ML VIAL IVP PRN (03:54)
--- NOTE | 2018-12-17 03:54 | NUR ---
PT C/O OF 09/26 ABDOMEN GIVEN TO PT ORDERED. WILL RESESS LATER
[2018-12-17] MEDS: METOCLOPRAMIDE 10 MG/2 ML INJ VIAL IVP SCH ×2 (03:55→09:34)
[2018-12-17 04:00] VITALS: BP 119/60
[2018-12-17] MEDS: CLINDAMYCIN 600 MG in DEXTROSE 5% 50 ML IV SCH ×2 (05:43→13:25)
[2018-12-17] MEDS: LEVOTHYROXINE 0.088 MG TAB PO SCH (05:44)
[2018-12-17] MEDS: BLOOD GLUCOSE MONITORING 1 DEV DEV FS SCH ×2 (05:50→11:30)
[2018-12-17] MEDS: INSULIN LISPRO SLIDING SCALE 100 UNITS/ML VIAL SUBQ PRN ×2 (05:53→12:36)
[2018-12-17] MEDS: guaiFENesin DM 200/20 MG-10 ML 10 ML UDC PO PRN ×2 (05:56→13:34)
--- NOTE | 2018-12-17 06:32 | NUR ---
PT ALERT ORIENTED O X 4, AMBULATORY, WALKING AROUND THE UNIT. AFEBRILE THE WHOLE NIGHT, GIVEN TORADOL EARLIER FOR PAIN.WILL ENDORSE TO NEXT SHIFT FOR CONTINUITY OF CARE
[2018-12-17] MEDS: ALBUTEROL SULFATE/IPRATROPIU 3 ML SOL IH SCH ×2 (07:00→12:50)
--- NOTE | 2018-12-17 07:20 | NUR ---
RECEIVED BEDSIDE REPORT FROM WARD CLERK NURSE, PT IS AWAKE AND ALERT, AMBULATING AROUND THE HALLWAY WITHOUT ANY DIFFICULTIES. PT IS ON ROOM AIR, SKIN INTACT. NO S/S OF ANY ACUTE DISTRESS NOTED. IV SITE IS NOTED ON THE L HAND, 22 G, INFUSING NS 60 ML/HR. CALL LIGHT IS WITHIN REACH. WILL CONTINUE MONITORING.
[2018-12-17 07:28] LABS: BASOPHILS % (AUTO) 0.2 % (0.0-2.0); EOSINOPHILS % (AUTO) 0.2 % (0.0-4.0); HEMATOCRIT 31.7 % (36-48); HEMOGLOBIN 10.8 g/dL (12.0-16.0); LYMPHOCYTES # (AUTO) 1.2 K/uL (2.5-16.5); LYMPHOCYTES % (AUTO) 17.7 % (20.5-51.1); MEAN CORPUSCULAR HEMOGLOBIN 28 pg (27-31); MEAN CORPUSCULAR HGB CONC 34 g/dL (33-37); MEAN CORPUSCULAR VOLUME 82.3 fL (80-94); MONOCYTES # (AUTO) 0.6 K/uL (0.8-1.0); MONOCYTES % (AUTO) 8.8 % (1.7-9.3); NEUTROPHILS # (AUTO) 5.1 K/uL (1.8-7.7); NEUTROPHILS % (AUTO) 73.1 % (42.2-75.2); PLATELET COUNT (AUTO) 264 K/uL (140-450); RED BLOOD CELL COUNT(AUTO) 3.86 MIL/uL (4.20-5.40); RED CELL DISTRIBUTION WIDTH 14.3 % (11.6-13.7)
[2018-12-17] MEDS ORDERED: FLUCONAZOLE 100 MG TAB PO SCH (07:30)
[2018-12-17 07:44] LABS: CARBON DIOXIDE 25.1 mmol/L (21-32); CREATININE 0.6 mg/dL (0.6-1.3); POTASSIUM 3.1 mmol/L (3.5-5.1)
[2018-12-17 07:59] LABS: MAGNESIUM 2.2 mg/dL (1.8-2.4); PHOSPHORUS 3.1 mg/dL (2.5-4.9)
[2018-12-17 08:00] VITALS: BP 123/54
[2018-12-17] MEDS ORDERED: metFORMIN 500 MG TAB PO SCH (09:00)
[2018-12-17] MEDS: FAMOTIDINE 20 MG TAB PO SCH (09:32)
[2018-12-17] MEDS: metFORMIN 500 MG TAB PO SCH (09:32)
[2018-12-17] MEDS: LACTOBACILLUS RHAMNOSUS GG 1 EACH CAP PO SCH (09:33)
[2018-12-17] MEDS: LOSARTAN 50 MG TAB PO SCH (09:33)
[2018-12-17] MEDS: methylPREDNISolone SS 40 MG/ML VIAL IVP SCH (09:34)
--- NOTE | 2018-12-17 10:00 | NUR ---
AM MEDS ADMINISTERED, PT TOLERATED WELL. PT REFUSED THE SUBQ HEPARIN BECAUSE SHE HAS BEEN ACTIVELY AMBULATING.
[2018-12-17] MEDS: ALBUTEROL SULFATE/IPRATROPIU 3 ML SOL IH PRN (10:45)
--- NOTE | 2018-12-17 10:48 | NUR ---
PT IS RECEIVING A BREATHING TX AT THIS TIME.
[2018-12-17 12:00] VITALS: BP 154/72
[2018-12-17] MEDS ORDERED: LEVO750T2 PO ×2 (12:06→12:55)
[2018-12-17] MEDS ORDERED: LACT10CA1 PO (12:06)
[2018-12-17] MEDS ORDERED: SITA50TA3 PO (12:06)
[2018-12-17] MEDS ORDERED: PRED10TA5 PO (12:06)
[2018-12-17] MEDS ORDERED: FLUC150T PO (12:08)
[2018-12-17] MEDS ORDERED: POTASSIUM CHLORIDE 10 MEQ TABER PO SCH (12:50)
--- NOTE | 2018-12-17 13:50 | NUR ---
PT WATCHING TV, NO S/S IF ANY ACUTE DISTRESS NOTED. PT ATE ABOUT 90% OF HER LUNCH. RECEIVING CLEOCIN IV AT THIS TIME. WAITING FOR PT'S SON TO COME PICK HER UP FOR HER DISCHARGE.
--- NOTE | 2018-12-17 14:32 | NUR ---
PT WAS GIVEN DC INSTRUCTIONS AND SHE VERBALIZED UNDERSTANDING. HER SON IS ON HER WAY TO PICK HER UP. IV AND WRIST BANDS WERE REMOVED.
--- NOTE | 2018-12-17 16:10 | NUR ---
PT HAS DISCHARGED. PT LEFT IN STABLE CONDITION WITH HER SON. DISCHARGE INSTRUCTIONS WERE GIVEN EARLIER.
[2018-12-17] MEDS ORDERED: CLIN300C2 PO (16:16)
== END 2018-12-17 16:10 | disposition home or self-care (01) | DRG 871 ==
LOC: MED 08:24 → MTU 12:42
PROVIDERS: ADMIT General Practice; ATTEND General Practice
DX: A41.9 Sepsis, unspecified organism (principal); J69.0 Pneumonitis due to inhalation of food and vomit; E87.1 Hypo-osmolality and hyponatremia; E44.1 Mild protein-calorie malnutrition; C34.91 Malignant neoplasm of unspecified part of right bronchus or lung; E03.9 Hypothyroidism, unspecified; I10 Essential (primary) hypertension; K21.9 Gastro-esophageal reflux disease without esophagitis; E66.9 Obesity, unspecified; F17.210 Nicotine dependence, cigarettes, uncomplicated; E86.0 Dehydration; E11.65 Type 2 diabetes mellitus with hyperglycemia; E11.43 Type 2 diabetes mellitus with diabetic autonomic (poly)neuropathy; K31.84 Gastroparesis; E11.21 Type 2 diabetes mellitus with diabetic nephropathy; E87.6 Hypokalemia; E83.39 Other disorders of phosphorus metabolism; E83.42 Hypomagnesemia; B37.3 Candidiasis of vulva and vagina; I35.1 Nonrheumatic aortic (valve) insufficiency; Z90.710 Acquired absence of both cervix and uterus; Z88.8 Allergy status to other drugs, medicaments and biological substances; Z90.49 Acquired absence of other specified parts of digestive tract; Z68.37 Body mass index [BMI] 37.0-37.9, adult; Z83.3 Family history of diabetes mellitus; Z82.49 Family history of ischemic heart disease and other diseases of the circulatory system; Z81.8 Family history of other mental and behavioral disorders
CPT/HCPCS: 36415; 71045; 71260; 76700; 76770; 80048; 80053; 81001; 82150; 82948; 83036; 83605; 83690; 83735; 83880; 84100; 84134; 84436; 84443; 84484; 85025; 85610; 85730; 87040; 87081; 87086; 87205; 93005; 94640; 96361; 96365; 96375; 96376; 97116; 97161-GP; 97530; 99291; J0696; J1644; J1885; J1956; J2001; J2270; J2405; J2765; J2920; J3475; J3480; J3490; J7030; J7060; J7620; Q0092; Q9967

== ENCOUNTER 2019-05-29 11:07 | Outpatient (CLI) | payer OTHER ==
[~2019-05-29 11:07] MED LIST changes: +CLIN300C2 PO; +FLUC150T PO; +LACT10CA1 PO; -LANS15EC28; +LEVO0.087 PO; +LEVO750T2 PO; +LOSA50TA66 PO; +METF-431 PO; -METO50TA34; +PRED10TA5 PO; +RANI150C PO; +SITA50TA3 PO
[2019-05-29 11:37] LABS: BASOPHILS # (AUTO) 0.1 K/uL (0.00-0.22); BASOPHILS % (AUTO) 0.6 % (0.0-2.0); EOSINOPHILS # (AUTO) 0.2 K/uL (0-0.4); EOSINOPHILS % (AUTO) 2.2 % (0.0-4.0); HEMATOCRIT 45.9 % (36-48); HEMOGLOBIN 15.2 g/dL (12.0-16.0); LYMPHOCYTES # (AUTO) 3.3 K/uL (2.5-16.5); LYMPHOCYTES % (AUTO) 36.7 % (20.5-51.1); MEAN CORPUSCULAR HEMOGLOBIN 28 pg (27-31); MEAN CORPUSCULAR HGB CONC 33 g/dL (33-37); MEAN CORPUSCULAR VOLUME 84.2 fL (80-94); MONOCYTES # (AUTO) 0.5 K/uL (0.8-1.0); MONOCYTES % (AUTO) 5.7 % (1.7-9.3); NEUTROPHILS % (AUTO) 54.8 % (42.2-75.2); PLATELET COUNT (AUTO) 304 K/uL (140-450); RED BLOOD CELL COUNT(AUTO) 5.45 MIL/uL (4.20-5.40); RED CELL DISTRIBUTION WIDTH 14.1 % (11.6-13.7); WHITE BLOOD COUNT (AUTO) 9.1 K/uL (4.8-10.8)
[2019-05-29 11:41] LABS: APPEARANCE,URINE CLEAR (CLEAR); BILIRUBIN,URINE NEGATIVE (NEGATIVE); BLOOD, URINE TRACE-I (NEGATIVE); COLOR,URINE YELLOW (YELLOW); LEUKOCYTE ESTERASE ,URINE NEGATIVE (NEGATIVE); NITRITE, URINE NEGATIVE (NEGATIVE); PH,URINE 5.5 (5.0-9.0); UGLUCOSE 1+ (NEGATIVE)
[2019-05-29 11:53] LABS: RBC,URINE 0-5 /HPF (0-5)
[2019-05-29 11:54] LABS: WBC,URINE 0-5 /HPF (0-5)
[2019-05-29 12:06] LABS: ALBUMIN 3.6 g/dL (3.4-5.0); ANION GAP 14.9 (8-16); CARBON DIOXIDE 25.1 mmol/L (21-32); CHOL/HDL RATIO 4.6 (1-4.5); CREATININE 0.7 mg/dL (0.6-1.3); THYROID STIMULATING HORMONE 12.14 uIU/mL (0.34-3.74); TOTAL BILIRUBIN 0.5 mg/dL (0.0-1.0)
== END 2019-05-29 20:17 | disposition home or self-care (01) ==
LOC: MLB 11:07
PROVIDERS: ATTEND Internal Medicine Geriatric Medicine
DX: Z00.00 Encounter for general adult medical examination without abnormal findings (principal)
CPT/HCPCS: 36415; 80053; 81001; 83036; 84443; 85025

== ENCOUNTER 2019-11-16 14:36 | Outpatient (CLI) | payer OTHER ==
[2019-11-16 15:46] LABS: ALBUMIN 3.9 g/dL (3.4-5.0); ANION GAP 18.1 (8-16); CHOL/HDL RATIO 4.8 (1-4.5); CREATININE 0.8 mg/dL (0.6-1.3); MAGNESIUM 1.9 mg/dL (1.8-2.4); POTASSIUM 4.1 mmol/L (3.5-5.1); THYROID STIMULATING HORMONE 6.81 uIU/mL (0.34-3.74); TOTAL BILIRUBIN 0.4 mg/dL (0.0-1.0)
== END 2019-11-16 20:05 | disposition home or self-care (01) ==
LOC: MLB 14:36
PROVIDERS: ATTEND Internal Medicine Geriatric Medicine
DX: E78.5 Hyperlipidemia, unspecified (principal); E55.9 Vitamin D deficiency, unspecified; E03.9 Hypothyroidism, unspecified
CPT/HCPCS: 36415; 80053; 82306; 83735; 84443